=== PATIENT | female | born 2000 | race Caucasian/White ===

== ENCOUNTER 2023-12-08 10:55 | Outpatient (CLI) | payer OTHER, SELFPAY ==
[2023-12-08 14:36] LABS: Iron 84 ug/dL (37-170)
[2023-12-08 14:59] LABS: Percent Iron Saturation 22 % (20-50)
== END 2023-12-08 10:56 | disposition home or self-care (01) ==
LOC: ANHGOSHLAB 10:56
PROVIDERS: PCP Family Medicine; Visit Provider Nurse Practitioner Family
DX: F41.9 Anxiety disorder, unspecified (principal); R53.83 Other fatigue; Z13.0 Encounter for screening for diseases of the blood and blood-forming organs and certain disorders involving the immune mechanism
CPT/HCPCS: 36415; 83540; 83550; 84443